=== PATIENT | female | born 1980 | race Caucasian/White ===

== ENCOUNTER → 2016-07-30 | Day surgery (SDC) | payer OTHER ==
[~2016-07-30] MED LIST: ACETAMINOPHEN 1000 MG/100 ML VIAL IV ONE; ACYC800T PO; BACITRACIN IM FOR SOLN 50,000 UNIT VIAL ONE; BUPIVACAINE LIPOSOME PF 1.3% 20 ML VIAL ONE; BUPIVACAINE/EPINEPHRINE 0.25% 50 ML VIAL ONE; GENTAMICIN SULFATE 80 MG/2 ML VIAL ONE; KETOROLAC TROMETHAMINE 30 MG/ML (IVP) VIAL ONE; LACTATED RINGER'S 1,000 ML BAG IV ONE; LACTATED RINGER'S 1000 ML INJ 1,000 ML ONE; LIDOCAINE 1%/EPINEPHrine 1:100,000 SOLN 20 ML VIAL ONE; LIDOCAINE 1%/EPINEPHrine 1:100,000 SOLN 50 ML VIAL ONE; MEPERIDINE HCL 50 MG/ML VIAL ONE; MIDAZOLAM HCL 2 MG/2 ML VIAL ONE; MORPHINE SULFATE 4 MG/ML INJ ONE; MULT1TAB46; ONDANSETRON HCL 4 MG/2 ML VIAL IV PUSH ONE; OXYC1SOL5 PO; PROPOFOL 200 MG/20 ML AMP IV ONE; SODIUM CHLORIDE 0.9% 20 ML VIAL ONE; SODIUM CHLORIDE 0.9% INJ 10 ML ONE; ZITHTAB PO; ZOLO20CO PO; ceFAZolin 2 GM PREMIX 50 ML ONE; ceFAZolin INJ 1,000 MG VIAL ONE
--- NOTE | 2016-07-30 12:25 | TN ---
cc: LVEON COPPOLA M.D. DATE OF SURGERY 07/30/2016 PREOPERATIVE DIAGNOSIS The patient had a strong family history of breast cancer with a positive BRCA2 gene and therefore mastectomy bilateral is indicated. PROCEDURE 1. Right simple mastectomy. 2. Bilateral breast tissue reconstruction utilizing a direct implant 410MX Natrelle, volume 445, serial number of the right breast device is set is [id number] and on the left breast [id number]. 3. She also underwent a reinforcement of the outer-inner pole utilizing a 6 x 16 AlloMax thick. SURGEON Levon Coppola MD ANESTHESIA LMA general. I also utilizing a breast block of a total of 60 cc of 1% lidocaine with epinephrine mixed with 0.25% Marcaine on a 2:1 ratio and before leaving the operating room, I also infiltrated a total of 40 cc of dilute Exparel with 20 cc of product with 20 cc of injectable saline, 20 cc per breast. DRAINS A total of four, two 7 and two 10 mm SHAKA. COMPLICATIONS None. PROCEDURE She was properly consented, marked, properly anesthetized. The skin was sterilized with Betadine solution and sterile draping applied. Isolation of the nipple-areolar complex was carried out utilizing Tegaderm. Using a 7-10 cm inframammary incision, a subcutaneous mastectomy was carried out with the following landmarks - Second and third intercostal space parasternal, anterior axillary line as well as the second to third intercostal space and 7th to 8th intercostal space inferiorly. Once the mastectomy was properly removed, two sutures were applied, short superior, long lateral and sent to pathology for simple analysis. Elevation at this point of the pectoris major muscle was carried out and reinforced into the inferomedial pole was done utilizing AlloMax 6 x 16 and sutured utilizing 2-0 Monocryl suture. At this point the implant was introduced utilizing no-touch technique assuring best through vertically and before that of course the SHAKA drains were brought out and secured in place, the 7-mm SHAKA in the retroperitoneal, the 10-mm of SHAKA was placed in the suprapectoral plane. Closure of the pocket was done by bringing the ADM down into the inframammary fold and closure of the wound at this point was done in multiple layers of 2-0 Monocryl suture on the Cresencio's fascia dermis and subcu. The contralateral left side with was approached for the mastectomy by Dr. Yonny Avila. Please refer to his dictation. I received the surgical site which was viable. Reinforcement of the anterior axillary line and inframammary fold was carried out. I did elevate the pectoralis major muscle and as previously described I reinforced the inframammary fold by suturing a 6 x 16 AlloDerm into the inframammary fold, to the lower aspect of the pectoris major muscle after the implant was introduced. Two drains were also secured as previously described and the wound was closed in similar manner as previously described. Overall the patient tolerated the procedure well. Absorbent dressings after Prineo Dermabond took place and fluffs thereafter. Good viability of the tissue was noted at the end of the case. The patient was awakened, extubated in the operating room and she was transferred back to the postanesthesia care unit in stable condition. No complication appreciated. The patient tolerated the procedure fairly well. MD TIMOTHY Anderson/ROXANNA /11:59 AM /12:12 PM [facility]
--- NOTE | 2016-07-30 13:01 | TN ---
cc: DANISH WHEELER M.D. DATE OF SURGERY: 07/30/2016 PREOPERATIVE DIAGNOSIS 1. BRCA1 positive. 2. Strong family history of breast cancer. POSTOPERATIVE DIAGNOSIS 1. BRCA1 positive. 2. Strong family history of breast cancer. PROCEDURE PERFORMED Left skin-sparing and nipple-sparing simple mastectomy. SURGEON Danish Wheeler MECH[employer]ICAL [employer]UFACTURING TECHNICIAN Blanca Calle, MS III ANESTHESIA General LMA. COMPLICATIONS None. INDICATION FOR PROCEDURE Ms. Brower is a very pleasant 35-year-old female who unfortunately is BRCA1 positive. Her mother at a very young age of breast cancer. She is referred for consideration of prophylactic mastectomy with reconstruction. Risks and benefits of this was discussed with her in the office and she was agreeable. The patient was referred to Dr. Levon Coppola who agreed with bilateral mastectomy with implant based reconstruction. DETAILS OF PROCEDURE The patient was identified and brought to the operating room, placed supine on the operating table. After adequate general anesthesia was achieved with LMA, the anterior chest and axilla was prepped and draped in standard surgical fashion. 0.25% Marcaine was injected circumferentially around the entire breast. An inframammary incision was made and subcutaneous skin flaps were then raised cephalad to the clavicle, medially to the sternum and laterally to the midaxillary line. The breast was then dissected up off the pectoralis major muscle using electrocautery Bovie. The breast was then removed and a short stitch was placed superior, long stitch placed lateral in order to orient the specimen. The flaps were then felt. Any thickened areas of the flaps were debrided with electrocautery or sharp dissection until the flaps were appropriately thinned in all directions. Also some of palpable breast tissue in the left axilla was also excised using an Allis clamp and electrocautery Bovie. Once we did this by direct palpation and visualization there was no obvious remaining breast tissue. The wound was copiously irrigated with normal saline solution. The patient was then left in the care of Dr. Levon Coppola who is going to perform an implant based reconstruction. Please see his operative note. MD ZAK Styles/WAN /12:45 PM /12:51 PM
== END | disposition home or self-care (01) ==
LOC: ESDC 06:52
PROVIDERS: ATTEND Surgery Trauma Surgery
DX: Z15.01 Genetic susceptibility to malignant neoplasm of breast (principal); Z80.3 Family history of malignant neoplasm of breast
CPT/HCPCS: 00402; 15777; 19304; 19340; 88307; C1789; C9290; J0131; J0690; J1580; J1885; J2175; J2250; J2270; J2405; J3010; J7120; Q4100

== ENCOUNTER → 2017-02-01 | Day surgery (SDC) | payer OTHER ==
[~2017-02-01] MED LIST changes: +ACETAMINOPHEN 1000 MG/100 ML 100 ML IV ONE; -ACETAMINOPHEN 1000 MG/100 ML VIAL IV ONE; -BUPIVACAINE LIPOSOME PF 1.3% 20 ML VIAL ONE; +DEXAMETHASONE SOD PHOS 4 MG/ML VIAL IV ONE; +KETOROLAC TROMETHAMINE 30 MG/ML (IVP) VIAL IV PUSH ONE; -KETOROLAC TROMETHAMINE 30 MG/ML (IVP) VIAL ONE; -LACTATED RINGER'S 1,000 ML BAG IV ONE; -LIDOCAINE 1%/EPINEPHrine 1:100,000 SOLN 20 ML VIAL ONE; -LIDOCAINE 1%/EPINEPHrine 1:100,000 SOLN 50 ML VIAL ONE; +LIDOCAINE 1.5%/EPINEPHrine 1:200,000 PF SOLN 30 ML AMP ONE; +LIDOCAINE HCL 1% PF 30 ML VIAL ONE; +MEPERIDINE HCL 25 MG/ML VIAL ONE; -MEPERIDINE HCL 50 MG/ML VIAL ONE; -MORPHINE SULFATE 4 MG/ML INJ ONE; -OXYC1SOL5 PO; -SODIUM CHLORIDE 0.9% INJ 10 ML ONE; -ceFAZolin 2 GM PREMIX 50 ML ONE
--- NOTE | 2017-02-01 09:19 | TN ---
cc: LEVON COPPOLA M.D. DATE OF SURGERY: 02/01/2017 PREOPERATIVE DIAGNOSIS Status post bilateral mastectomy with deficiency and asymmetry. PROCEDURE Bilateral revision reconstruction utilizing micro fat injections. SURGEON Levon Coppola MD FACS ANESTHESIA Laryngeal mask anesthesia general. ESTIMATED BLOOD LOSS: Minimal. Intake and output 245 cc in, 10,000 cc of fat, those suitable for injection was approximately 216 international units which was delivered uniformly where needed where the left took a little bit more than the right. COMPLICATIONS None. DRAINS: None. PROCEDURE: The patient was consented, marked and anesthetized, the skin was sterilized with Betadine solution, sterile draping applied. I proceeded to perform a suction assisted mammoplasty from the abdomen and axillary areas and was properly washed decanted and transferred to smaller syringes where utilizing puncture wounds. I delivered the fat into the concaved areas mostly on the upper poles of the breast, however, it was distributed throughout the breast in order to better to get the best symmetry possible. blunt touches were done where needed as the patient was sat up for this injection. The punctures were closed utilizing for a 5-0 chromic suture and Steri-Strips applied a snug brassiere and binder was applied thereafter. Overall the patient tolerated the procedure well. She was awakened, and extubated in operating room transferred back to postanesthesia care unit in stable condition. The patient tolerated the procedure fairly well. MD TIMOTHY Anderson/joshua /9:03 AM /9:09 AM [facility]US[facility]y
== END | disposition home or self-care (01) ==
LOC: ESDC 06:23
PROVIDERS: ATTEND Plastic Surgery
DX: N64.89 Other specified disorders of breast (principal); Z90.13 Acquired absence of bilateral breasts and nipples; N64.81 Ptosis of breast; Z15.01 Genetic susceptibility to malignant neoplasm of breast; Z80.3 Family history of malignant neoplasm of breast
CPT/HCPCS: 00402; 19380; J0131; J0690; J1580; J1885; J2175; J2250; J2405; J3010; J7120; J1100